=== PATIENT | male | born 1985 | race African-American/Black ===

== ENCOUNTER 2024-03-20 20:19 | Emergency (ER) | payer OTHER, MEDICAID ==
[~2024-03-20] VITALS: Ht 180.3 cm; Wt 105.9 kg
[2024-03-20] MEDS: HYDROcodone-ACET 10/325MG TAB PO ONE (21:55)
[2024-03-20] MEDS: KETOROLAC TROMETH 60MG/2ML VIAL IM ONE (21:56)
[2024-03-20] MEDS ORDERED: ACET500T58 PO (23:57)
[2024-03-20] MEDS ORDERED: IBUP-1455 PO (23:57)
[2024-03-21 00:04] VITALS: BP 121/85; PULSE 70; RESP 17; TEMP 98; O2SAT 97
== END 2024-03-21 00:05 | disposition home or self-care (01) ==
LOC: ER 20:19
DX: S16.1XXA Strain of muscle, fascia and tendon at neck level, initial encounter (principal); S29.012A Strain of muscle and tendon of back wall of thorax, initial encounter; S46.912A Strain of unspecified muscle, fascia and tendon at shoulder and upper arm level, left arm, initial encounter; V89.2XXA Person injured in unspecified motor-vehicle accident, traffic, initial encounter; Y93.89 Activity, other specified; Y92.89 Other specified places as the place of occurrence of the external cause; Y99.8 Other external cause status
CPT/HCPCS: 72040; 72070; 73030; 96372; 99284; J1885